=== PATIENT | female | born 1960 | race Caucasian/White ===

== ENCOUNTER 2020-12-20 11:08 | Outpatient (REF) | payer OTHER, SELFPAY ==
--- NOTE | ~2020-12-20 | XR_ITS ---
EXAMINATION: XR CERVICAL SPINE CLINICAL INFORMATION: Fibromyalgia. COMPARISON: None TECHNIQUE: Six views of the cervical spine, inclusive of flexion and extension views, were obtained. FINDINGS: There is mild straightening of cervical lordosis. The vertebral heights, alignment and disc heights are normal. There is no visible acute fracture, dislocation or lytic process seen. The neural foramina are patent bilaterally. There is no visible acute fracture, dislocation or subluxation seen. Incidental finding of bilateral C7 cervical ribs are noted The prevertebral soft tissues are normal. XR/XR cervical spine min 6V IMPRESSION: Unremarkable cervical spine exam. Incidental finding of bilateral C7 cervical ribs are noted.
== END 2020-12-20 11:09 | disposition home or self-care (01) ==
LOC: HO.XRAY 11:08
PROVIDERS: PCP Internal Medicine; Visit Provider Psychiatry & Neurology Neurology
DX: M79.7 Fibromyalgia (principal)
CPT/HCPCS: 72052

== ENCOUNTER 2021-01-14 15:00 | Outpatient (RCR) | payer OTHER, SELFPAY ==
--- NOTE | 2021-01-09 18:13 | MHC.PT.EP ---
[facility] [place] Office [place] Office [place] Office [address] Demetria Fry [address] [phone] F: [phone] F: [phone] F: [phone] F: [phone] Physical Therapy Plan of Care Date of Evaluation: 01/09/21 Date of Surgery: N/A Diagnosis: cervical rib with thoracic outlet syndrome Assessment: pt presents w/ signs and symptoms consistent with thoracic outlet syndrome secondary to B C7 cervical rib abnormality. pt presents to physical therapy with pain, decreased range of motion, decreased strength, impaired functional mobility, and impaired postural awareness. pt is a fair candidate for skilled PT due to age, potential remediation of impairments, typical disease/condition progression and prognosis, comorbidities, and motivation. pt would benefit from tailored strengthening and stretching exercise program, functional training, postural re-training, neuromuscular re-education, modalities as needed for pain, equipment safety demonstration. Frequency and Duration: The patient will be seen 2x/wk for 3 wks Short Term Goals: pt will be I w/ HEP to promote self-management of condition. pt will improve B middle trap and rhomboid strength by 1 MMT grade to improve postural strength to improve sitting posture. 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 pt will achieve full biceps strength to tolerate lifting 20# vats of food at work. Treatment Plan: Modalities to reduce pain, spasms and effusion. Manual therapy to restore motion and function. Therapeutic exercise to improve strength and flexibility. Neuromuscular re-education for posture and balance. Therapeutic activities to return to functional activities of daily living. Electronically signed by: Dilia Doherty PT, DPT Please sign and return to therapist. Thank you for your referral.
--- NOTE | 2021-02-03 15:33 | MHC.PT.DC ---
[facility] [place] Office [place] Office [place] Office [address] Demetria Fry [address] [phone] F: [phone] F: [phone] F: [phone] F: [phone] Physical Therapy Discharge Report Diagnosis: cervical rib with thoracic outlet syndrome Date of Surgery: N/A Date of Evaluation: 01/09/21 Date of Discharge: 02/03/21 Treatments to Date: 2 Cancellations to Date: 1 No Shows to Date: 0 Discharge Status: Visit Non-compliance Discharge Summary: The patient only attended one visit after her initial evaluation. She has not followed up with any further appointments in nearly three weeks. She is discharged from this physical therapy plan of care due to visit noncompliance. Electronically signed by: Dilia Doherty PT, DPT Please sign and return to therapist. Thank you for your referral.
== END 2021-02-03 15:33 | disposition other institution (70) ==
LOC: HO.PT 15:00
PROVIDERS: PCP Internal Medicine; Visit Provider Psychiatry & Neurology Neurology
DX: Q76.5 Cervical rib (principal); G54.0 Brachial plexus disorders
CPT/HCPCS: 97110; 97112; 97140; 97162

== ENCOUNTER 2023-05-19 10:23 | Outpatient (REF) | payer OTHER, SELFPAY ==
[2023-05-19 13:22] LABS: Alanine Aminotransferase 13 U/L (0-31); Albumin Level 4.3 g/dL (3.5-5.0); Alkaline Phosphatase 51 U/L (39-117); Anion Gap 11 (12-20); Aspartate Amino Transferase 14 U/L (5-31); Bilirubin Total 0.5 mg/dL (0.0-1.0); Blood Urea Nitrogen 10 mg/dL (9-16); Calcium 9.3 mg/dL (8.4-10.2); Carbon Dioxide 25 mmol/L (22-29); Chloride 108 mmol/L (96-108); Cholesterol 173 mg/dL; Estimated Glomerular Filt Rate > 60; Glucose Fasting 82 mg/dL (60-99); HDL Cholesterol 50 mg/dL; LDL Cholesterol Calculated 106 mg/dl; Potassium 3.8 mmol/L (3.3-5.1); Sodium 140 mmol/L (135-145); Total Protein 7.2 g/dL (6.5-8.0); Triglycerides 88 mg/dL
== END 2023-05-19 10:24 | disposition home or self-care (01) ==
LOC: HO.10HDL 10:23
PROVIDERS: Visit Provider Internal Medicine
DX: E78.5 Hyperlipidemia, unspecified (principal); I10 Essential (primary) hypertension
CPT/HCPCS: 36415; 80053; 80061

== ENCOUNTER 2023-06-09 12:40 | Outpatient (AMB) | payer OTHER, SELFPAY ==
[2023-06-09 12:50] VITALS: BP 136/80; BMI 31.9
--- NOTE | 2023-06-09 12:50 | MHC.PC.OV ---
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 Accompanied by: Self / Same As Patient Allergies azithromycin [AZITHROMYCIN] Allergy (Severe, Verified 06/09/23 12:59) RASH, anaphylaxis lisinopril Allergy (Unknown, Verified 06/09/23 12:59) Cough Medication List - Last Reconciled 06/09/23 by Tamra Grant MD amlodipine 5 mg PO DAILY 90 days atorvastatin 10 mg PO BEDTIME 90 days cyclobenzaprine 10 mg PO TID duloxetine (Cymbalta) 20 mg PO BID fluticasone propionate 50 mcg/actuation (Flonase Allergy Relief) 1 spray intranasal DAILY topiramate 100 mg PO BEDTIME Tobacco use date assessed: 01/13/23 Dental Screening Dental Screen Date: 06/09/23 Did you have a dental visit in the last 12 months?: Yes Did you have a dental problem in the last 6 months where you did not have access to dental care?: No Was dental information given to patient?: Patient has dentist HPI HPI Comments History of Present Illness Details This is a 63-year-old female that comes for her physical exam. Last mammogram was about 2 years ago. Last Pap smear was 2019. Last colonoscopy was over 10 years ago but she is going to hold off for now due to insurance. Last bone density was over 2 years ago. Blood pressure stable and labs were discussed. [facility] Surgical History Skin cancer Family History Father Astrocytoma Mother Astrocytoma Sister Hypothyroid Family/Other FH: mental illness Brother Suicide Social History Housing: Apartment Alcohol intake: current Alcohol intake frequency: holidays/special occasions only Alcohol type: beer and hard liquor Patient Tobacco Use Status: Current everyday Tobacco user Cigarettes Per Day: 5 e-Cigarette/Vaping Use: Never Used Second Hand Smoke Exposure: No service: No Current occupational status: employed Current occupational exposures/hazards: No Cognitive needs: No Hearing needs: No Vision needs: Yes Questionnaire Thrive Questionnaire Date Thrive assessed: 01/13/23 HOLLEY-7 AMB Questionnaire HOLLEY-7 Date HOLLEY - 7 assessed: 01/13/23 Source: Developed by Drs. Cezar Sanz, Vikki Nur, Hao Ibarra and colleagues, with an educational antonio from [employer]. Review of Systems Const All systems reviewed & are unremarkable except as noted in HPI and below Eyes Reports no additional complaints, Denies change in vision and Denies other visual disturbances Card Denies chest pain at rest, Denies chest pain with activity, Denies edema, Denies irregular heart rhythm, Denies claudication, Denies dyspnea, Denies dyspnea on exertion, Denies orthopnea, Denies paroxysmal nocturnal dyspnea and Denies slow heart rate Resp Denies cough, Denies dyspnea and Denies dyspnea on exertion GI Denies abdominal pain, Denies change in bowel habits, Denies excessive flatus, Denies nausea and Denies vomiting Denies urinary incontinence, Denies urinary hesitancy and Denies urinary urgency Musc Denies abnormal gait, Denies atrophy, Denies deformity and Denies limited range of motion Skin/Breast Denies bleeding lesions, Denies changing lesions and Denies rash Neuro Denies abnormal gait and Denies lack of coordination Physical exam (Primary Care) Vital Signs: Last Vital Signs BP 136/80 06/09/23 12:50 BMI result Body Mass Index 31.9 Tobacco/Smoking Status: Tobacco use Status Tobacco use date assessed 01/13/23 06/09/23 12:54 Patient Tobacco Use Status Current everyday Tobacco 06/09/23 12:54 e-Cigarette/Vaping Use Never Used 06/09/23 12:54 Thrive Assessment: Date of Thrive Assessment Date Thrive assessed 01/13/23 06/09/23 12:54 Const Orientation/consciousness: patient oriented x3 HENMT Head: Yes normal to inspection, Yes normocephalic and Yes atraumatic Ears: external ears normal Eyes General: appearance normal, both eyes and all related structures Eyelids: Yes eyelids normal Conjunctivae: conjunctivae normal Neck Neck: Yes normal visual inspection and Yes supple Resp Effort & Inspection: normal respiratory effort Auscultation: clear to auscultation bilaterally Cardio Jugular venous distension: no JVD Rate: regular rate Rhythm: regular rhythm Heart sounds: S1 normal heart sound present and S2 normal heart sound present GI Inspection: Yes normal to inspection Palpation (GI): Soft to palpation and nontender Auscultation: normal bowel sounds Skin General skin exam: no rashes or lesions noted Neuro General: patient oriented x3 and no focal motor deficits Extrem General: Yes full ROM Psych Appearance: grossly normal Assessment and Plan Assessment & Plan (1) Physical exam: Code(s): Z00.00 - Encounter for general adult medical examination without abnormal findings Plan: Repeat in a year Orders: Orders MM screening mammo BI Today Z12.31 - Encounter for screening mammogram for malignant neoplasm of breast XR DEXA axial skeleton Today N95.9 - Unspecified menopausal and perimenopausal disorder Medications: New Ventolin HFA 90 mcg/actuation (albuterol sulfate) 2 puffs inhalation Q6H 30 days PRN 18 grams 2RF shortness of breath or wheezing NS Coding Level of Care Code Est Pt Prev Care 40-64y(51212) Diagnoses Physical exam Z00.00 Time Spent (min) 31
== END 2023-06-09 13:13 | disposition home or self-care (01) ==
PROVIDERS: PCP Internal Medicine; Visit Provider Internal Medicine
DX: Z00.00 Encounter for general adult medical examination without abnormal findings (principal)
CPT/HCPCS: 99396

== ENCOUNTER 2023-07-14 12:29 | Outpatient (REF) | payer OTHER, SELFPAY ==
--- NOTE | ~2023-07-14 | MM_ITS ---
EXAMINATION: BONE DENSITOMETRY CLINICAL INDICATION: Unspecified menopausal and perimenopausal disorder. COMPARISON: Baseline BD dated 06/06/2013. TECHNIQUE: Using a [employer] DXA System (software version: 13.1) manufactured by [employer], dual-energy x-ray absorptiometry was performed of the lumbar spine and left hip. The images are of good technical quality. Summary results are attached. FINDINGS: LEFT FEMUR, NECK: Current: BMD 0.871 g/cm2, Z-score -0.4, T-score -1.2, osteopenia. Baseline: BMD 0.958 g/cm2. LEFT FEMUR, TOTAL: Current: BMD 1.025 g/cm2, Z-score 0.5, T-score 0.1, normal, 4.9% decrease from baseline (<5% change is not significant). Baseline: BMD 1.078 g/cm2. AP SPINE L1-L4: Current: BMD 1.345 g/cm2, Z-score 1.9, T-score 1.4, normal, 0.1% increase from baseline (<5% change is not significant). Baseline: BMD 1.344 g/cm2. IDENTIFIED RISK FACTORS: Menopause, tobacco user (current smoker). HISTORY OF FRACTURE: None listed. MEDICATIONS: Calcium, vitamin D. MM/XR DEXA axial skeleton IMPRESSION: 1. DIAGNOSIS: Osteopenia based on the lowest T-score value of -1.2 in the femoral neck applying World Health Organization criteria. 2. 10-YEAR FRACTURE RISK PREDICTION, FRAX: Major osteoporotic fracture (clinical spine, forearm, hip or shoulder) 7.4%. Hip fracture 0.9%. 3. Treatment Recommendations: NOF guidelines recommend consideration for treatment in postmenopausal women and men age 50 and older presenting with the following: -A hip or vertebral (clinical or morphometric) fracture. -T-score less than or equal to -2.5 at the femoral neck or spine after appropriate evaluation to exclude secondary causes. -Low bone mass at the hip or spine and a 10-year fracture probability by FRAX of greater than or equal to 3% for hip fracture or greater than or equal to 20% for major osteoporotic fracture based on the [place] adapted WHO algorithm. 4. Other Recommendations: All treatment decisions require clinical judgment and consideration of individual patient factors, including patient preferences, comorbidities, previous drug use, risk factors not captured in the FRAX model (e.g. frailty, falls, vitamin D deficiency, increased bone turnover, interval significant decline in bone density) and possible under or overestimation of fracture risk by FRAX. Additional medical evaluation for secondary cause of low bone mineral density may be appropriate. FUTURE SCAN RECOMMENDATION: People with diagnosed cases of osteoporosis or at high risk for fracture should have regular bone mineral density tests. For patients eligible for Medicare, routine testing is allowed once every 2 years. The testing frequency can be increased to one year for patients who have rapidly progressing disease, those who are receiving or discontinuing medical therapy to restore bone mass, or have additional risk factors.
== END 2023-07-14 12:30 | disposition home or self-care (01) ==
LOC: HO.MAMMO 12:29
PROVIDERS: PCP Internal Medicine; Visit Provider Internal Medicine
DX: Z12.31 Encounter for screening mammogram for malignant neoplasm of breast (principal); Z13.820 Encounter for screening for osteoporosis; Z78.0 Asymptomatic menopausal state
CPT/HCPCS: 77063; 77067; 77080

== ENCOUNTER → 2023-07-14 13:00 | Outpatient (BNV) | payer OTHER, SELFPAY | PROVIDERS: PCP Internal Medicine; Visit Provider Radiology Diagnostic Radiology | DX: Z12.31 Encounter for screening mammogram for malignant neoplasm of breast (principal) | CPT/HCPCS: 77063; 77067 ==

== ENCOUNTER 2024-05-09 10:51 | Outpatient (AMB) | payer OTHER, SELFPAY ==
[2024-05-09 11:19] VITALS: BP 144/90; PULSE 74; TEMP 36.8; O2SAT 98; BMI 32.4
--- NOTE | 2024-05-09 11:19 | AM.OFFWIN_ITS ---
Intake Vital Signs 05/09/24 11:19 Height 5 ft 7 in Weight 207 lb BMI 32.4 BP 144/90 H Blood Pressure Location Lt brachial Position Sitting Pulse 74 Pulse Source Pulse Oximeter Temp 98.3 F Temp Source Oral Pulse Oximetry (%) 98 Oxygen Delivery Method Room Air Intake Visit Reasons: EP Flu/Sinus symptoms Intake Note: pt c/o sinus pressure and pain, sore throat, intermittent fever, cough. 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 Reporting symptoms of sinus congestion, sore throat and difficulty swallowing. Low-grade fever. No family member is sick. No recent travel. Patient reports symptoms of malaise and fatigue. [facility] Medical History (Updated 05/09/24 @ 11:58 by Kirit Bowser MD) Upper respiratory tract infection Surgical History Skin cancer Family History Father Astrocytoma Mother Astrocytoma Sister Hypothyroid Family/Other FH: mental illness Brother Suicide Social History Housing: Apartment Alcohol intake: current Alcohol intake frequency: holidays/special occasions only Alcohol type: beer and hard liquor Patient Tobacco Use Status: Current everyday Tobacco user Cigarettes Per Day: 5 e-Cigarette/Vaping Use: Never Used Second Hand Smoke Exposure: No service: No Current occupational status: employed Current occupational exposures/hazards: No Cognitive needs: No Hearing needs: No Vision needs: Yes Physical Exam Vital Signs: Last Vital Signs Temp 98.3 F 05/09/24 11:19 Pulse 74 05/09/24 11:19 BP 144/90 H 05/09/24 11:19 Pulse Ox 98 05/09/24 11:19 Oxygen Delivery Method Room Air 05/09/24 11:19 BMI result Body Mass Index 32.4 Const General: cooperative and healthy appearing Nutritional Appearance: well nourished Orientation/consciousness: patient oriented x3 Limitations: no limitations HEENT Head: Yes normal to inspection Eyes General: appearance normal, both eyes and all related structures Neck Neck: Yes normal visual inspection Chest Chest palpation & inspection: normal palpation of entire chest wall Resp Effort & Inspection: normal respiratory effort Neuro General: patient oriented x3 Assessment & Plan Assessment & Plan (1) Upper respiratory tract infection: Code(s): J06.9 - Acute upper respiratory infection, unspecified Plan: Antibiotics ordered. Increase fluid intake. Tylenol for aches and pains. If symptoms worsen, follow-up here for a recheck. Coding Level of Care Code Est Pt Level 3 (92846) Diagnoses Upper respiratory tract infection J06.9
== END 2024-05-09 13:22 | disposition home or self-care (01) ==
PROVIDERS: PCP Internal Medicine; Visit Provider Internal Medicine
DX: J06.9 Acute upper respiratory infection, unspecified (principal)
CPT/HCPCS: 99213

== ENCOUNTER 2024-06-13 12:50 | Outpatient (AMB) | payer OTHER, SELFPAY ==
--- NOTE | 2024-06-13 12:52 | A.OFFPC_ITS ---
Vital Signs 06/13/24 12:53 Height 5 ft 7 in Weight 204 lb BMI 31.9 BP 136/80 Blood Pressure Location Lt brachial Position Sitting Intake Visit Reasons: pe Intake Note: Patient here for a physical exam [employer] Required: No Accompanied by: Self / Same As Patient Allergies azithromycin [AZITHROMYCIN] Allergy (Severe, Verified 06/13/24 13:09) RASH, anaphylaxis lisinopril Allergy (Unknown, Verified 06/13/24 13:09) Cough Medication List - Last Reconciled 06/13/24 by Tamra Grant MD albuterol sulfate 90 mcg/actuation (Ventolin HFA) 2 puffs inhalation Q6H PRN 30 days amlodipine 5 mg PO DAILY 90 days atorvastatin 10 mg PO BEDTIME 90 days duloxetine 60 mg PO DAILY 90 days topiramate 100 mg PO BEDTIME Tobacco use date assessed: 06/13/24 Dental Screening Dental Screen Date: 06/13/24 Did you have a dental visit in the last 12 months?: Yes Did you have a dental problem in the last 6 months where you did not have access to dental care?: No Was dental information given to patient?: Patient has dentist HPI HPI Comments History of Present Illness Details This is a 64-year-old female that comes for her physical exam. She is obese with a BMI of 32 and has tried diet and exercise with no significant improvement. I will start her on Wegovy. Mammogram done 2022 was normal. DEXA scan done 2022 and next DEXA should be 2024. We will hold on colonoscopy for now. Was advised to quit smoking and wants to start the patch. Complains of neck pain relieved by Flexeril and would like a refill. Last Pap smear as per patient was 2021 and was normal. [facility] Medical History (Updated 06/13/24 @ 13:31 by Tamra Grant MD) Upper respiratory tract infection Surgical History Skin cancer Family History Father Astrocytoma Mother Astrocytoma Sister Hypothyroid Family/Other FH: mental illness Brother Suicide Social History Housing: Apartment Alcohol intake: current Alcohol intake frequency: holidays/special occasions only Alcohol type: beer and hard liquor Patient Tobacco Use Status: Current everyday Tobacco user Tobacco use type: Cigarette Cigarettes Per Day: 5 e-Cigarette/Vaping Use: Never Used Second Hand Smoke Exposure: No service: No Current occupational status: employed Current occupational exposures/hazards: No Cognitive needs: No Hearing needs: No Vision needs: Yes Questionnaire PHQ-9 Over the last 2 weeks, how often have you been bothered by any of the following problems? 1. Little interest or pleasure in doing things: not at all 2. Feeling down, depressed, or hopeless: not at all 3. Trouble falling or staying asleep, or sleeping too much: not at all 4. Feeling tired or having little energy: several days 5. Poor appetite or overeating: not at all 6. Feeling bad about yourself - or that you are a failure or have let yourself or your family down: not at all 7. Trouble concentrating on things, such as reading the newspaper or watching television: not at all 8. Moving or speaking so slowly that other people could have noticed. Or the opposite - being so fidgety or restless that you have been moving around a lot more than usual: not at all 9. Thoughts that you would be better off or of hurting yourself in some way: not at all Total score: 1 Depression Screening Interpretation: Negative Depression Screening Done: Yes 41504 - PHQ-9 Billing: Yes Source: Developed by Drs. Cezar Sanz, Vikki Nur, Hao Ibarra and colleagues, with an educational antonio from [employer]. Thrive Questionnaire Date Thrive assessed: 06/13/24 I am a: Patient What is your living situation today?: I have a steady place to live Within the past 12 months, did the food you bought not last and you didn't have the money to get more?: Never true Within the past 12 months, did you worry whether your food would run out before you got money to buy more?: Never true Do you have trouble paying for medicines?: I choose not to answer this question Do you have trouble getting transportation to medical appointments?: No Do you have trouble paying your heating and electricity bill?: No Do you have trouble taking care of your child, family member or friend?: No Do you have trouble with day-to-day activities such as bathing, preparing meals, shopping, managing finances, etc.?: No Are you currently unemployed and looking for a job?: No Are you interested in more education?: No Please select the resources that you would like help with: None Currently or been in a relationship where the following occur: I choose not to answer THRIVE Score: 0 AUDIT C Alcohol Use Questionnaire (AUDIT-C) 1. How often do you have a drink containing alcohol?: Monthly or less 2. How many drinks containing alcohol do you have on a typical day when you are drinking?: 1 or 2 3. How often do you have six or more drinks on one occasion?: Never Total Score: 1 Score Reviewed/Action Taken: No HOLLEY-7 AMB Questionnaire HOLLEY-7 Date HOLLEY - 7 assessed: 06/13/24 Feeling nervous, anxious, or on edge: 0 = Not at all Not being able to stop or control worryin = Not at all Worrying too much about different things: 0 = Not at all Trouble relaxin = Not at all Being so restless that it is hard to sit still: 0 = Not at all Becoming easily annoyed or irritable: 0 = Not at all Feeling afraid as if something awful might happen: 0 = Not at all Total HOLLEY-7 score (0-4 normal; 5-9 mild; 10-14 moderate; 15-21 severe): 0 Source: Developed by Drs. Cezar Sanz, Vikki Nur, Hao Ibarra and colleagues, with an educational antonio from [employer]. HOLLEY-7 Assessment Billing HOLLEY-7 Assessment Tool: HOLLEY-7 Assessment 31998 Review of Systems Const All systems reviewed & are unremarkable except as noted in HPI and below ENT Reports neck pain Card Denies chest pain at rest, Denies chest pain with activity, Denies edema, Denies irregular heart rhythm, Denies claudication, Denies dyspnea, Denies dyspnea on exertion, Denies orthopnea, Denies paroxysmal nocturnal dyspnea and Denies slow heart rate Resp Denies cough, Denies dyspnea and Denies dyspnea on exertion GI Denies abdominal pain, Denies change in bowel habits, Denies excessive flatus, Denies nausea and Denies vomiting Denies urinary incontinence, Denies urinary hesitancy and Denies urinary urgency Musc Denies abnormal gait, Denies atrophy, Denies deformity, Reports arthralgias, Den ies limited range of motion and Reports neck pain Skin/Breast Denies bleeding lesions, Denies changing lesions and Denies rash Neuro Denies abnormal gait and Denies lack of coordination Physical exam (Primary Care) Vital Signs: Last Vital Signs BP 136/80 06/13/24 12:53 BMI result Body Mass Index 31.9 BMI Assessment/Plan discussion: High BMI High, discussed plan: lifestyle, weight reduction, dietary, physical activity and alcohol moderation Tobacco/Smoking Status: Tobacco use Status Tobacco use date assessed 06/13/24 06/13/24 13:01 Patient Tobacco Use Status Current everyday Tobacco 06/13/24 13:01 Tobacco use type Cigarette 06/13/24 13:01 e-Cigarette/Vaping Use Never Used 06/13/24 13:01 Are you ready to quit: Yes Tobacco cessation counseling provided: Yes Items discussed: Nicotine replacement Relapse Prevention: discussed the importance of a supportive environment, discussed extending NRT, discussed negative mood or depression after quitting, weight gain after smoking is common and discussed dietary, exercise and/or lifestyle changes Number of minutes spent counselin CPT code: 71621 - 4-10 Minutes PHQ-9: PHQ-9 Score PHQ-9: Total score 1 06/13/24 13:01 Depression Screening Interpretation: Negative Thrive Assessment: Date of Thrive Assessment Date Thrive assessed 06/13/24 06/13/24 13:01 Currently or been in a relationship where the following occur: I choose not to answer [facility] Head: Yes normal to inspection, Yes normocephalic and Yes atraumatic Ears: external ears normal Eyes General: appearance normal, both eyes and all related structures Eyelids: Yes eyelids normal Conjunctivae: conjunctivae normal Neck Neck: Yes normal visual inspection and Yes supple Resp Effort & Inspection: normal respiratory effort Auscultation: clear to auscultation bilaterally Cardio Jugular venous distension: no JVD Rate: regular rate Rhythm: regular rhythm Heart sounds: S1 normal heart sound present and S2 normal heart sound present GI Inspection: Yes normal to inspection Palpation (GI): Soft to palpation and nontender Auscultation: normal bowel sounds Skin General skin exam: no rashes or lesions noted Neuro General: no focal motor deficits Extrem General: Yes full ROM Psych Appearance: grossly normal Assessment and Plan Assessment & Plan (1) Physical exam: Code(s): Z00.00 - Encounter for general adult medical examination without abnormal findings Plan: Repeat in a year. (2) Class 1 obesity with body mass index (BMI) of 32.0 to 32.9 in adult: Code(s): E66.9 - Obesity, unspecified; Z68.32 - Body mass index [BMI] 32.0-32.9, adult Qualifiers: Obesity type: due to excess calories Serious obesity comorbidity presence: with serious comorbidity Qualified Code(s): E66.09 - Other obesity due to excess calories; Z68.32 - Body mass index [BMI] 32.0-32.9, adult Plan: Start Wegovy. BMI goal is less than 30. (3) Neck pain: Code(s): M54.2 - Cervicalgia Plan: Start Flexeril as needed. Orders: Orders Comprehensive [place]. Panel Fast Today Z00.00 - Encounter for general adult medical examination without abnormal findings Lipid Panel Today E78.5 - Hyperlipidemia, unspecified MM screening mammo BI Today Z12.31 - Encounter for screening mammogram for malignant neoplasm of breast Medications: New cyclobenzaprine 5 mg PO TID 30 days PRN 90 tabs 0RF muscle spasm M54.2 - Cervicalgia nicotine 1 patch transdermal DAILY 28 days 28 ea 0RF semaglutide (weight loss) (Wegovy) administer weeks 1 through 4 of therapy 0.25 mg (0.5 mL) subcut QWEEK 4 weeks 2 mL 0RF E66.9 - Obesity, unspecified, E78.00 - Pure hypercholesterolemia, unspecified, I10 - Essential (primary) hypertension, Z68.32 - Body mass index [BMI] 32.0-32.9, adult Refilled albuterol sulfate 90 mcg/actuation (Ventolin HFA) 2 puffs inhalation Q6H 30 days PRN 8.5 grams 2RF shortness of breath or wheezing Coding Level of Care Code Est Pt Level 3 (01025) Est Pt Prev Care 40-64y(71656) Diagnoses Physical exam Z00.00 Class 1 obesity due to excess calories with serious comorbidity and body mass index (BMI) of 32.0 to 32.9 in adult E66.09; Z68.32 Obesity type: due to excess calories Serious obesity comorbidity presence: with serious comorbidity Neck pain M54.2 Additional Codes HOLLEY-7 Assessment Billing - HOLLEY-7 Assessment Tool: HOLLEY-7 Assessment 01540 ([id number]) Vital Signs *Quality* - CPT code: 21743 - 4-10 Minutes ([id number]) Time Spent (min) 35
[2024-06-13 12:53] VITALS: BP 136/80; BMI 31.9
== END 2024-06-13 13:26 | disposition home or self-care (01) ==
PROVIDERS: PCP Internal Medicine; Visit Provider Internal Medicine
DX: Z00.00 Encounter for general adult medical examination without abnormal findings (principal); E66.09 Other obesity due to excess calories; Z68.32 Body mass index [BMI] 32.0-32.9, adult; F17.210 Nicotine dependence, cigarettes, uncomplicated; M54.2 Cervicalgia
CPT/HCPCS: 99213; 99396; 99406

== ENCOUNTER 2024-07-19 13:10 | Outpatient (REF) | payer OTHER, SELFPAY ==
--- NOTE | ~2024-07-19 | MM_ITS ---
EXAMINATION: MM SCREENING DIGITAL BREAST TOMOSYNTHESIS, BILATERAL CLINICAL INFORMATION: Screening. Asymptomatic. COMPARISON: Mammography: Comparison is made with available priors TECHNIQUE: Digital breast mammography with tomosynthesis is performed in both the craniocaudal and mediolateral oblique views along with computer-aided detection (CAD). FINDINGS: There are scattered areas of fibroglandular density (ACR BI-RADS breast composition Category b). There are no significant masses, abnormal calcifications, or other abnormalities. MM/MM tomosynthesis screening BI IMPRESSION: No mammographic evidence of malignancy. ASSESSMENT: BI-RADS BI-RADS 1 - Negative RECOMMENDATION: Routine annual mammography screening. 1 year F/U This examination should not preclude the clinical evaluation of a suspicious palpable abnormality. This patient's information was entered into a reminder system with a target due date for their next mammogram. Electronically signed by: Bijal Keenan DO 07/31/2024 05:34 PM EDT
== END 2024-07-19 13:11 | disposition home or self-care (01) ==
LOC: HO.MAMMO 13:10
PROVIDERS: PCP Internal Medicine; Visit Provider Internal Medicine
DX: Z12.31 Encounter for screening mammogram for malignant neoplasm of breast (principal)
CPT/HCPCS: 77063; 77067

== ENCOUNTER → 2024-07-19 13:30 | Outpatient (BNV) | payer OTHER, SELFPAY | PROVIDERS: PCP Internal Medicine; Visit Provider Internal Medicine | DX: Z12.31 Encounter for screening mammogram for malignant neoplasm of breast (principal) | CPT/HCPCS: 77063; 77067 ==

== ENCOUNTER 2024-09-05 11:04 | Outpatient (REF) | payer OTHER, SELFPAY ==
[2024-09-05 15:21] LABS: Influenza A PCR NEGATIVE (Negative); Influenza B PCR NEGATIVE (Negative); Resp Syncy Virus RNA Qual PCR NEGATIVE (Negative); SARS COV2 PCR INHOUSE NEGATIVE (Negative)
== END 2024-09-05 11:05 | disposition home or self-care (01) ==
LOC: HO.LAB 11:04
PROVIDERS: Physician Assistant; PCP Internal Medicine
DX: J06.9 Acute upper respiratory infection, unspecified (principal)
CPT/HCPCS: 0241U

== ENCOUNTER 2024-09-05 11:04 | Outpatient (AMB) | payer OTHER, SELFPAY ==
[2024-09-05 11:27] VITALS: BP 126/70; PULSE 76; TEMP 37.1; O2SAT 98
--- NOTE | 2024-09-05 11:27 | MHC.OFFWIV ---
Intake Vital Signs 09/05/24 11:27 Weight 206 lb BP 126/70 Blood Pressure Location Rt brachial Position Sitting Pulse 76 Pulse Source Pulse Oximeter Temp 98.7 F Temp Source Oral Pulse Oximetry (%) 98 Oxygen Delivery Method Room Air Intake Visit Reasons: EP persistent cough, irritated throat Intake Note: Patient here for cough and laryngitis that started last wednesday. Patient Tobacco Use Status: Current everyday Tobacco user Allergies azithromycin [AZITHROMYCIN] Allergy (Severe, Verified 09/05/24 11:28) RASH, anaphylaxis lisinopril Allergy (Unknown, Verified 09/05/24 11:28) Cough Do you need a note to return to daycare/school/sports/work: Yes HPI HPI Comments History of Present Illness Details History of Present Illness The patient is a 64-year-old female presenting with respiratory symptoms including sore throat, loss of voice, persistent cough, and difficulty breathing. The symptoms began last Wednesday with a sore throat followed by loss of voice and a relentless cough. The cough is particularly problematic during physical activities like walking and climbing stairs, as well as during sleep, necessitating upright positioning. The patient also reported fevers up to 100?F, which occasionally recurs at 99.9?F. They have a history of asthma, managed with an albuterol inhaler, which has seen increased use over the past few days due to thick phlegm production initially white, now greenish-yellow, and sinus congestion, though phlegm production has since reduced. The patient works at a [employer] facility where compliance with protective measures like masks is challenging, increasing potential exposure risks. They also experience heightened asthma symptoms during early spring and fall and usually manage allergies with Claritin. The patient is allergic to azithromycin. Current medication includes corticosteroid lozenges and Tylenol. Physical Exam General: Cooperative, healthy appearing, comfortable and no acute distress Orientation/consciousness: Patient oriented x3 Limitations: No limitations Head: Normal to inspection Ears: Hearing grossly normal bilaterally, external ears normal and TM's normal bilaterally, but left ear erythema with wax obstructing view Nose: Normal external nose present, Normal nares present and No nasal discharge present Face and sinus: Normal facial exam and Yes sinuses nontender Mouth: Normal oral and palatal mucosa present and moist mucous membranes Throat: Yes tonsils normal, Yes uvula midline. Posterior oropharynx erythema Eyes: Appearance normal, both eyes and all related structures Neck: Normal visual inspection Respirtory: Clear to auscultation bilaterally. Normal respiratory effort, able to speak in complete sentences, Actively coughing, no respiratory distress, not tachypneic, no tripod positioning and no use of accessory muscles Cardiovascular: Regular rate and rhythm. Normal S1 and S2 Skin: No rashes or lesions noted Neuro: Patient oriented x3 Extremities: Normal to inspection and Yes no clubbing, cyanosis or edema PFSH Medical History Upper respiratory tract infection Surgical History Skin cancer Family History Father Astrocytoma Mother Astrocytoma Sister Hypothyroid Family/Other FH: mental illness Brother Suicide Social History Housing: Apartment Alcohol intake: current Alcohol intake frequency: holidays/special occasions only Alcohol type: beer and hard liquor Patient Tobacco Use Status: Current everyday Tobacco user Tobacco use type: Cigarette Cigarettes Per Day: 5 e-Cigarette/Vaping Use: Never Used Second Hand Smoke Exposure: No service: No Current occupational status: employed Current occupational exposures/hazards: No Cognitive needs: No Hearing needs: No Vision needs: Yes Review of Systems Const All systems reviewed & are unremarkable except as noted in HPI and below Physical Exam Vital Signs: Last Vital Signs Temp 98.7 F 09/05/24 11:27 Pulse 76 09/05/24 11:27 BP 126/70 09/05/24 11:27 Pulse Ox 98 09/05/24 11:27 Oxygen Delivery Method Room Air 09/05/24 11:27 Assessment & Plan Assessment & Plan (1) Upper respiratory tract infection: Code(s): J06.9 - Acute upper respiratory infection, unspecified Qualifiers: URI type: unspecified URI Qualified Code(s): J06.9 - Acute upper respiratory infection, unspecified Plan: Plan - Atypical Pneumonia: Initiate doxycycline for five days as the primary treatment due to azithromycin allergy. Arrange for respiratory viral testing including flu, COVID, and RSV to rule out other viral pathogens. Prescribe Tessalon Perles for symptomatic relief to be taken as needed, especially at night to improve sleep quality. Advise continuation of current corticosteroid lozenges. - Asthma: Prescribe an additional ventilator inhaler because of increased usage and ensure adequate supply. - Rest: Recommend staying off work for an additional day for rest and adequate hydration. A work note can be provided to cover these days. Orders: Orders SARS-CoV2/FLU/RSV Today J06.9 - Acute upper respiratory infection, unspecified Medications: New benzonatate 200 mg PO TID PRN 14 caps 0RF cough albuterol sulfate 90 mcg/actuation (Ventolin HFA) 2 puffs inhalation Q4-6H PRN 8.5 grams 0RF shortness of breath or wheezing doxycycline hyclate 100 mg PO BID 10 tabs 0RF Coding Level of Care Code Est Pt Level 4 (74413) Diagnoses Upper respiratory tract infection, unspecified type J06.9 URI type: unspecified URI
== END 2024-09-05 11:49 | disposition home or self-care (01) ==
PROVIDERS: PCP Internal Medicine; Visit Provider Physician Assistant
DX: J06.9 Acute upper respiratory infection, unspecified (principal)

== ENCOUNTER → 2024-10-31 10:31 | Outpatient (BNVA) | payer OTHER, SELFPAY | PROVIDERS: PCP Internal Medicine; Visit Provider Registered Nurse | DX: S30.0XXA Contusion of lower back and pelvis, initial encounter (principal); S40.012A Contusion of left shoulder, initial encounter; S76.112A Strain of left quadriceps muscle, fascia and tendon, initial encounter; W00.0XXA Fall on same level due to ice and snow, initial encounter | CPT/HCPCS: 99203 ==

== ENCOUNTER → 2024-11-07 10:52 | Outpatient (BNVA) | payer OTHER, SELFPAY | PROVIDERS: PCP Internal Medicine; Visit Provider Registered Nurse | DX: S30.0XXD Contusion of lower back and pelvis, subsequent encounter (principal); S40.012D Contusion of left shoulder, subsequent encounter; S76.112D Strain of left quadriceps muscle, fascia and tendon, subsequent encounter; W00.0XXD Fall on same level due to ice and snow, subsequent encounter | CPT/HCPCS: 99213 ==

== ENCOUNTER 2024-11-29 13:16 | Outpatient (AMB) | payer OTHER, SELFPAY ==
--- NOTE | 2024-11-29 13:23 | A.OFFPC_ITS ---
Vital Signs 11/29/24 13:25 Height 5 ft 7 in Weight 206 lb 6 oz BMI 32.3 BP 110/72 Blood Pressure Location Lt brachial Position Sitting Pulse 81 Pulse Source Pulse Oximeter Temp 97.1 F Temp Source Temporal Artery Scan Pulse Oximetry (%) 99 Oxygen Delivery Method Room Air Intake Visit Reasons: BP Intake Note: Patient is here to follow up on BP. Policy Change Clerk Required: No Derrick Worker: Not Required per policy Accompanied by: Self / Same As Patient Allergies azithromycin [AZITHROMYCIN] Allergy (Severe, Verified 11/29/24 13:48) RASH, anaphylaxis lisinopril Allergy (Unknown, Verified 11/29/24 13:48) Cough Medication List - Last Reconciled 11/29/24 by Tamra Grant MD albuterol sulfate 90 mcg/actuation (Ventolin HFA) 2 puffs inhalation Q4-6H PRN amlodipine 5 mg PO DAILY 90 days atorvastatin 10 mg PO BEDTIME 90 days benzonatate 200 mg PO TID PRN cyclobenzaprine 5 mg PO TID PRN 30 days duloxetine 60 mg PO DAILY 90 days nicotine 1 patch transdermal DAILY 28 days topiramate 100 mg (2 x 50 mg) PO BEDTIME 90 days Tobacco use date assessed: 11/29/24 Dental Screening Dental Screen Date: 11/29/24 Did you have a dental visit in the last 12 months?: Yes Did you have a dental problem in the last 6 months where you did not have access to dental care?: No Was dental information given to patient?: Patient has dentist HPI HPI Comments History of Present Illness Details The patient is a 64-year-old female presenting for a follow-up visit for assessment of ongoing health issues and medication management. She has a history of hypertension, satisfactorily controlled with Amlodipine. The patient had a recent COVID-19 infection, with a subsequent onset of cough during recovery. She had an allergic reaction to Azithromycin resulting in a rash and experienced a cough due to Lisinopril, which was discontinued. The patient's current medication regimen includes Atorvastatin for hyperl ipidemia, Cyclobenzaprine for episodic muscle spasms, Duloxetine for fibromyalgia-related pain and depression, and Topiramate for migraine prophylaxis. Recently, she sustained contusions from a fall on ice, resulting in bruises primarily on her back and wrists but no fractures as confirmed by workman's compensation consultations. 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 Despite past efforts with nicotine patches, she continues to smoke three cigarettes per day and occasionally consumes alcohol during special events. [facility] Medical History (Updated 11/29/24 @ 14:02 by Tamra Grant MD) Upper respiratory tract infection Surgical History Skin cancer Family History Father Astrocytoma Mother Astrocytoma Sister Hypothyroid Family/Other FH: mental illness Brother Suicide Other Mental health disorder Social History Housing: Apartment Alcohol intake: current Alcohol intake frequency: holidays/special occasions only Alcohol type: beer and hard liquor Patient Tobacco Use Status: Current everyday Tobacco user Tobacco use type: Cigarette Cigarette Packs Per Day: 0.25 Cigarettes Per Day: 3 e-Cigarette/Vaping Use: Never Used Second Hand Smoke Exposure: Yes service: No Current occupational status: employed Current occupational exposures/hazards: No Cognitive needs: No Hearing needs: No Vision needs: Yes (Glasses) Questionnaire PHQ-9 Over the last 2 weeks, how often have you been bothered by any of the following problems? 1. Little interest or pleasure in doing things: not at all 2. Feeling down, depressed, or hopeless: not at all 3. Trouble falling or staying asleep, or sleeping too much: not at all 4. Feeling tired or having little energy: not at all 5. Poor appetite or overeating: not at all 6. Feeling bad about yourself - or that you are a failure or have let yourself or your family down: not at all 7. Trouble concentrating on things, such as reading the newspaper or watching television: not at all 8. Moving or speaking so slowly that other people could have noticed. Or the opposite - being so fidgety or restless that you have been moving around a lot more than usual: not at all 9. Thoughts that you would be better off or of hurting yourself in some way: not at all Total score: 0 Depression Screening Interpretation: Negative Depression Screening Done: Yes 60866 - PHQ-9 Billing: Yes Source: Developed by Drs. Cezar Sanz, Vikki Nur, Hao Ibarra and colleagues, with an educational antonio from [employer]. Thrive Questionnaire Date Thrive assessed: 11/29/24 I am a: Patient What is your living situation today?: I have a steady place to live Within the past 12 months, did the food you bought not last and you didn't have the money to get more?: Never true Within the past 12 months, did you worry whether your food would run out before you got money to buy more?: Never true Do you have trouble paying for medicines?: I choose not to answer this question Do you have trouble getting transportation to medical appointments?: No Do you have trouble paying your heating and electricity bill?: No Do you have trouble taking care of your child, family member or friend?: No Do you have trouble with day-to-day activities such as bathing, preparing meals, shopping, managing finances, etc.?: No Are you currently unemployed and looking for a job?: No Are you interested in more education?: No Please select the resources that you would like help with: None Currently or been in a relationship where the following occur: I choose not to answer THRIVE Score: 0 AUDIT C Alcohol Use Questionnaire (AUDIT-C) 1. How often do you have a drink containing alcohol?: Monthly or less 2. How many drinks containing alcohol do you have on a typical day when you are drinking?: 1 or 2 3. How often do you have six or more drinks on one occasion?: Never Total Score: 1 Score Reviewed/Action Taken: No HOLLEY-7 AMB Questionnaire HOLLEY-7 Date HOLLEY - 7 assessed: 11/29/24 Feeling nervous, anxious, or on edge: 0 = Not at all Not being able to stop or control worryin = Not at all Worrying too much about different things: 0 = Not at all Trouble relaxin = Not at all Being so restless that it is hard to sit still: 0 = Not at all Becoming easily annoyed or irritable: 0 = Not at all Feeling afraid as if something awful might happen: 0 = Not at all Total HOLLEY-7 score (0-4 normal; 5-9 mild; 10-14 moderate; 15-21 severe): 0 Source: Developed by Drs. Cezar Sanz, Vikki Nur, Hao Ibarra and colleagues, with an educational antonio from [employer]. HOLLEY-7 Assessment Billing HOLLEY-7 Assessment Tool: HOLLEY-7 Assessment 38799 Review of Systems Const All systems reviewed & are unremarkable except as noted in HPI and below Card Denies chest pain at rest, Denies chest pain with activity, Denies edema, Denies irregular heart rhythm, Denies claudication, Denies dyspnea, Denies dyspnea on exertion, Denies orthopnea, Denies paroxysmal nocturnal dyspnea and Denies slow heart rate Resp Denies cough, Denies dyspnea and Denies dyspnea on exertion GI Denies abdominal pain, Denies change in bowel habits, Denies excessive flatus, Denies nausea and Denies vomiting Denies urinary incontinence, Denies urinary hesitancy and Denies urinary urgency Neuro Denies lack of coordination Physical exam (Primary Care) Vital Signs: Last Vital Signs Temp 97.1 F 11/29/24 13:25 Pulse 81 11/29/24 13:25 BP 110/72 11/29/24 13:25 Pulse Ox 99 11/29/24 13:25 Oxygen Delivery Method Room Air 11/29/24 13:25 BMI result Body Mass Index 32.3 Tobacco/Smoking Status: Tobacco use Status Tobacco use date assessed 11/29/24 11/29/24 13:30 Patient Tobacco Use Status Current everyday Tobacco 11/29/24 13:30 Tobacco use type Cigarette 11/29/24 13:30 e-Cigarette/Vaping Use Never Used 11/29/24 13:30 PHQ-9: PHQ-9 Score PHQ-9: Total score 0 11/29/24 13:30 Depression Screening Interpretation: Negative Thrive Assessment: Date of Thrive Assessment Date Thrive assessed 11/29/24 11/29/24 13:30 Currently or been in a relationship where the following occur: I choose not to answer Resp Effort & Inspection: normal respiratory effort Auscultation: clear to auscultation bilaterally Cardio Jugular venous distension: no JVD Rate: regular rate Rhythm: regular rhythm Heart sounds: S1 normal heart sound present and S2 normal heart sound present Extrem General: Yes full ROM Coding Level of Care Code Est Pt Level 4 (68930) Complex EM visit Add On G2211 Diagnoses Essential hypertension I10 Pure hypercholesterolemia E78.00 Muscle spasm M62.838 Migraines G43.909 Additional Codes PHQ-9 - 89374 - PHQ-9 Billing: Yes ([id number]) HOLLEY-7 Assessment Billing - HOLLEY-7 Assessment Tool: HOLLEY-7 Assessment 55323 ([id number]) Time Spent (min) 22 Assessment & Plan Assessment & Plan (1) Essential hypertension: Code(s): I10 - Essential (primary) hypertension Category: Medical (2) Pure hypercholesterolemia: Code(s): E78.00 - Pure hypercholesterolemia, unspecified Category: Medical (3) Muscle spasm: Code(s): M62.838 - Other muscle spasm Category: Medical (4) Migraines: Code(s): G43.909 - Migraine, unspecified, not intractable, without status migrainosus Category: Medical Plan The visit focused on managing the patient's chronic conditions, particularly hypertension, fibromyalgia, and migraine prophylaxis. The patient reported effective blood pressure control with ongoing Amlodipine treatment. After a recent COVID-19 infection, respiratory symptoms should be monitored even after recovery. Current management plans for fibromyalgia and migraines with Duloxetine and Topiramate appear effective with no impending changes. The patient has a history of an allergic rash to Azithromycin and cough with Lisinopril, both to be avoided. After a recent fall with contusions, care is advised without additional imaging unless symptoms persist. Support continues for the patient's reduced smoking efforts using nicotine patches. Upcoming blood work is planned for the annual physical in June, focusing on comprehensive health assessment. Patient was informed and verbally consented to the use of an ambient scribe for clinic note documentation during this visit. During our discussion, I explained to the patient the importance of monitoring her blood pressure, which is under control with her current medication, Amlodipine. We discussed her recent COVID-19 experience and noted the atypical post-recovery cough she's experiencing. I emphasized the importance of staying vigilant for any further respiratory symptoms. The patient is currently avoiding Azithromycin due to a prior rash and Lisinopril due to a past cough. In terms of pain management for fibromyalgia and migraines, I confirmed the continued use of Duloxetine and Topiramate, respectively. Regarding her recent fall, although she did not require emergency treatment, I advised caution and reinforced safety measures at work, given her exposure to potential workplace hazards. We discussed her smoking habits and the reduction she's achieved with nicotine patches as part of her efforts to quit. The patient was informed about an upcoming scheduled blood work in June for her annual physical examination, where we will focus on a detailed analysis of cholesterol, sugar levels, kidney, and liver function, as well as discuss further management of her conditions, any new developments, and ongoing preventative health strategies. Orders: Orders Lipid Panel 7 Months E78.5 - Hyperlipidemia, unspecified Comprehensive Grant. Panel Fast 7 Months I10 - Essential (primary) hypertension Vitamin D 25-OH Total 7 Months E55.9 - Vitamin D deficiency, unspecified XR DEXA axial skeleton 7 Months Z78.0 - Asymptomatic menopausal state Medications: Refilled benzonatate 200 mg PO TID PRN 14 caps 0RF cough Patient Instructions: - Continue taking Amlodipine, Atorvastatin, Duloxetine, and Topiramate as prescribed. - Monitor any continued cough or respiratory symptoms, especially [id number] recovery. - Avoid using Azithromycin and Lisinopril. - Use Cyclobenzaprine as needed for muscle spasms. - Continue with efforts to reduce and eventually cease smoking, utilizing nicotine patches as necessary. - Follow workplace safety protocols to reduce risk of falls and exposure to infections. - Blood work is scheduled for June; ensure attendance for comprehensive assessment. - Return for immediate care if experiencing severe respiratory issues or new symptoms related to recent fall injuries.
[2024-11-29 13:25] VITALS: BP 110/72; PULSE 81; TEMP 36.2; O2SAT 99; BMI 32.3
== END 2024-11-29 13:59 | disposition home or self-care (01) ==
PROVIDERS: PCP Internal Medicine; Visit Provider Internal Medicine
DX: I10 Essential (primary) hypertension (principal); E78.00 Pure hypercholesterolemia, unspecified; M62.838 Other muscle spasm; G43.909 Migraine, unspecified, not intractable, without status migrainosus

== ENCOUNTER → 2024-11-29 13:16 | Outpatient (BNVA) | payer OTHER, SELFPAY | PROVIDERS: PCP Internal Medicine; Visit Provider Internal Medicine | DX: I10 Essential (primary) hypertension (principal); E78.00 Pure hypercholesterolemia, unspecified; M62.838 Other muscle spasm; G43.909 Migraine, unspecified, not intractable, without status migrainosus; Z79.899 Other long term (current) drug therapy | CPT/HCPCS: 96127 ==

== ENCOUNTER 2025-08-15 10:25 | Outpatient (REF) | payer OTHER, SELFPAY ==
--- NOTE | ~2025-08-15 | MM_ITS ---
EXAMINATION: DXA BONE DENSITY AXIAL HISTORY: Z78.0 - Asymptomatic menopausal state TECHNIQUE: [employer] Dual energy absorptiometry (DEXA) of the lumbar spine, total left hip, and femoral neck was performed. COMPARISON: Comparison is made with the prior examination dated July 2023 and June 2013. FINDINGS: The bone mineral density of the lumbar spine is 1.3-4 g/cm2, corresponding to a T-score of 1.2, and a Z-score of 1.8. This is indicative of normal bone mineral density. This represents a BMD change of -1.6% compared to the prior exam. This is not statistically significant. The bone mineral density of the left total hip is 0.988 g/cm2, corresponding to a T-score of -0.2, and a Z-score of 0.3. This is indicative of normal bone mineral density. This represents a BMD change of -3.6% compared to the prior exam. This is not statistically significant. This represents a BMD change of -8.3% compared to baseline. The bone mineral density of the left femoral neck is 0.875 g/cm2, corresponding to a T-score of -1.2, and a Z-score of 0.4. This is indicative of osteopenia. This represents a BMD change of 0.5% compared to the prior exam. This is not statistically significant. FRACTURE RISK: The FRAX index suggests a ten year probability of major osteoporotic fracture of 7.7%, and of hip fracture 1.0%. MM/XR DEXA axial skeleton IMPRESSION: Based on bone mineral density, and according to World Health Organization (WHO) criteria, the diagnosis is consistent with osteopenia based on lowest T score of -1.2 in the left femoral neck. No appreciable change compared to most recent exam July 2023. Treatment Recommendations: NOF guidelines recommend consideration for treatment in postmenopausal women and men age 50 and older presenting with the following: -A hip or vertebral (clinical or morphometric) fracture. -T-score less than or equal to -2.5 at the femoral neck or spine after appropriate evaluation to exclude secondary causes. -Low bone mass at the hip or spine and a 10-year fracture probability by FRAX of greater than or equal to 3% for hip fracture or greater than or equal to 20% for major osteoporotic fracture based on the [place] adapted WHO algorithm. Other Recommendations: All treatment decisions require clinical judgment and consideration of individual patient factors, including patient preferences, comorbidities, previous drug use, risk factors not captured in the FRAX model (e.g. frailty, falls, vitamin D deficiency, increased bone turnover, interval significant decline in bone density) and possible under or overestimation of fracture risk by FRAX. Additional medical evaluation for secondary cause of low bone mineral density may be appropriate. FUTURE SCAN RECOMMENDATION: People with diagnosed cases of osteoporosis or at high risk for fracture should have regular bone mineral density tests. For patients eligible for Medicare, routine testing is allowed once every 2 years. The testing frequency can be increased to one year for patients who have rapidly progressing disease, those who are receiving or discontinuing medical therapy to restore bone mass, or have additional Statistically, 68% of repeat scans fall within 1 SD (+/- 0.010 g/cm2 for AP spine L1-L4) and 1 SD (+/- 0.012 g/cm2 for femur total) FRAX is a trademark of the [employer]'s [facility] [employer], a World Health Organization (WHO) Collaborating Center. Electronically signed by: Jaelyn Hunter MD 08/15/2025 11:37 AM [facility]
== END 2025-08-15 10:26 | disposition home or self-care (01) ==
LOC: HO.MAMMO 10:25
PROVIDERS: PCP Internal Medicine; Visit Provider Internal Medicine
DX: Z12.31 Encounter for screening mammogram for malignant neoplasm of breast (principal); Z13.820 Encounter for screening for osteoporosis; Z78.0 Asymptomatic menopausal state
CPT/HCPCS: 77063; 77067; 77080

== ENCOUNTER → 2025-08-15 10:45 | Outpatient (BNV) | payer OTHER, SELFPAY | PROVIDERS: PCP Internal Medicine; Visit Provider Radiology Diagnostic Radiology | DX: E28.39 Other primary ovarian failure (principal) | CPT/HCPCS: 77080 ==

== ENCOUNTER 2025-08-24 13:59 | Outpatient (AMB) | payer OTHER, SELFPAY ==
[2025-08-24 14:15] VITALS: BP 148/90; PULSE 80; TEMP 36.2; O2SAT 97; BMI 33.2
--- NOTE | 2025-08-24 14:15 | A.OFFPC_ITS ---
Vital Signs 08/24/25 14:15 Height 5 ft 7 in Weight 212 lb BMI 33.2 BP 148/90 H Blood Pressure Location Rt brachial Position Sitting Pulse 80 Pulse Source Pulse Oximeter Temp 97.1 F Temp Source Temporal Artery Scan Pulse Oximetry (%) 97 Oxygen Delivery Method Room Air Intake Visit Reasons: pain on shoulder Allergies azithromycin (AZITHROMYCIN) Allergy (Severe, Verified 08/24/25 14:19) RASH, anaphylaxis lisinopril Allergy (Unknown, Verified 08/24/25 14:19) Cough Medication List - Last Reconciled 08/24/25 by Ana Rivers MD albuterol sulfate 90 mcg/actuation (Ventolin HFA) 2 puffs inhalation Q4-6H PRN amlodipine 5 mg PO DAILY 90 days atorvastatin 10 mg PO BEDTIME 90 days benzonatate 200 mg PO TID PRN cyclobenzaprine 5 mg PO TID PRN 30 days duloxetine 60 mg PO DAILY 90 days nicotine 1 patch transdermal DAILY 28 days topiramate 100 mg (2 x 50 mg) PO BEDTIME 90 days Tobacco use date assessed: 08/24/25 Fall risk assessment: No Falls in past year Last assessed Fall Risk: 08/24/25 Dental Screening Dental Screen Date: 08/24/25 Did you have a dental visit in the last 12 months?: Yes Did you have a dental problem in the last 6 months where you did not have access to dental care?: No Was dental information given to patient?: Patient has dentist HPI HPI Comments History of Present Illness Details The patient is a 65 year old individual presenting with left shoulder pain that started approximately three weeks to one month ago. The pain is described as random, sharp, and shooting, primarily located in the shoulder and bicep area, with occasional radiation down the arm. It is triggered by movements such as lifting the arm, reaching, or moving it downwards, and sometimes causes difficulty raising the arm fully. The patient denies any specific injury, trauma, or fall preceding the onset of pain. The patient reports using a heating pad and Bioflex gel, which provide some relief. Her work involves heavy lifting at times, but does not engage in other vigorous exercises. Past medical history is significant for bilateral extra cervical ribs, and the patient has previously performed exercises for related pain. There is no history of surgeries on the arm. Medications reviewed include topiramate, duloxetine, atorvastatin, amlodipine, and an albuterol inhaler as needed. The patient takes cyclobenzaprine 5 mg at night for general muscle pain. [facility] Medical History Upper respiratory tract infection Surgical History Skin cancer Family History Father Astrocytoma Mother Astrocytoma Sister Hypothyroid Family/Other FH: mental illness Brother Suicide Other Mental health disorder Social History Housing: Apartment Alcohol intake: current Alcohol intake frequency: holidays/special occasions only Alcohol type: beer and hard liquor Patient Tobacco Use Status: Current everyday Tobacco user Tobacco use type: Cigarette Cigarette Packs Per Day: 0.25 Cigarettes Per Day: 3 e-Cigarette/Vaping Use: Never Used Second Hand Smoke Exposure: Yes service: No Current occupational status: employed Current occupational exposures/hazards: No Cognitive needs: No Hearing needs: No Vision needs: Yes (Glasses) Questionnaire PHQ-9 Over the last 2 weeks, how often have you been bothered by any of the following problems? 1. Little interest or pleasure in doing things: not at all 2. Feeling down, depressed, or hopeless: not at all 3. Trouble falling or staying asleep, or sleeping too much: not at all 4. Feeling tired or having little energy: not at all 5. Poor appetite or overeating: not at all 6. Feeling bad about yourself - or that you are a failure or have let yourself or your family down: not at all 7. Trouble concentrating on things, such as reading the newspaper or watching television: not at all 8. Moving or speaking so slowly that other people could have noticed. Or the opposite - being so fidgety or restless that you have been moving around a lot more than usual: not at all 9. Thoughts that you would be better off or of hurting yourself in some way: not at all Total score: 0 Source: Developed by Drs. Cezar Sanz, Vikki Nur, Hao Ibarra and colleagues, with an educational antonio from [employer]. Thrive Questionnaire Date Thrive assessed: 11/29/24 I am a: Patient What is your living situation today?: I have a steady place to live Within the past 12 months, did the food you bought not last and you didn't have the money to get more?: Never true Within the past 12 months, did you worry whether your food would run out before you got money to buy more?: Never true Do you have trouble paying for medicines?: No Do you have trouble getting transportation to medical appointments?: No Do you have trouble paying your heating and electricity bill?: No Do you have trouble taking care of your child, family member or friend?: No Do you have trouble with day-to-day activities such as bathing, preparing meals, shopping, managing finances, etc.?: No Are you currently unemployed and looking for a job?: No Are you interested in more education?: No Please select the resources that you would like help with: None Currently or been in a relationship where the following occur: No concerns reported THRIVE Score: 0 AUDIT C Alcohol Use Questionnaire (AUDIT-C) 1. How often do you have a drink containing alcohol?: Monthly or less 2. How many drinks containing alcohol do you have on a typical day when you are drinking?: 1 or 2 3. How often do you have six or more drinks on one occasion?: Never Total Score: 1 HOLLEY-7 AMB Questionnaire HOLLEY-7 Date HOLLEY - 7 assessed: 11/29/24 Feeling nervous, anxious, or on edge: 0 = Not at all Not being able to stop or control worryin = Not at all Worrying too much about different things: 0 = Not at all Trouble relaxin = Not at all Being so restless that it is hard to sit still: 0 = Not at all Becoming easily annoyed or irritable: 0 = Not at all Feeling afraid as if something awful might happen: 0 = Not at all Total HOLLEY-7 score (0-4 normal; 5-9 mild; 10-14 moderate; 15-21 severe): 0 Source: Developed by Drs. Cezar Sanz, Vikki Nur, Hao Ibarra and colleagues, with an educational antonio from [employer]. Physical exam (Primary Care) Vital Signs: Last Vital Signs Temp 97.1 F 08/24/25 14:15 Pulse 80 08/24/25 14:15 BP 148/90 H 08/24/25 14:15 Pulse Ox 97 08/24/25 14:15 Oxygen Delivery Method Room Air 08/24/25 14:15 General: Well-appearing, alert, oriented ?3, in no acute distress. Cardiovascular: RRR, S1-S2 appreciated, no murmurs, rubs or gallops. Respiratory: Lungs clear to auscultation bilaterally, no wheezes, rales or rhonchi. Abdomen: Soft, nontender, nondistended. Normoactive bowel sounds. Shoulder: Range of motion, sensation and strength intact in bilateral shoulders. Positive empty can test. BMI result Body Mass Index 33.2 Tobacco/Smoking Status: Tobacco use Status Tobacco use date assessed 08/24/25 08/24/25 14:20 Patient Tobacco Use Status Current everyday Tobacco 08/24/25 14:20 Tobacco use type Cigarette 08/24/25 14:20 e-Cigarette/Vaping Use Never Used 08/24/25 14:20 PHQ-9: PHQ-9 Score PHQ-9: Total score 0 08/24/25 14:20 Thrive Assessment: Date of Thrive Assessment Date Thrive assessed 11/29/24 08/24/25 14:20 Currently or been in a relationship where the following occur: No concerns reported Coding Level of Care Code Est Pt Level 3 (89197) Diagnoses Left shoulder pain, unspecified chronicity M25.512 Chronicity: unspecified Assessment & Plan Assessment & Plan (1) Left shoulder pain: Code(s): M25.512 - Pain in left shoulder Qualifiers: Chronicity: unspecified Qualified Code(s): M25.512 - Pain in left shoulder Plan: Patient is presenting with a 3 to four-week history of left shoulder pain the setting of occupational history of heavy lifting, with ddx including osteoarthritis, tendinopathy, rotator cuff impingement. Obtain x-ray of the left shoulder to further evaluate. Start naproxen 500 mg twice a day for 7 days then on as-needed basis. Patient counseled on taking medication with food and water and avoiding other NSAIDs. Referral for physical therapy was discussed. However, the patient prefers to defer at this time due to scheduling conflicts. She will attempt home exercises that she previously learned. Orders: Orders XR shoulder LT min 2V Today M25.512 - Pain in left shoulder Medications: New naproxen 500 mg PO BID 30 tabs 0RF pain
== END 2025-08-24 14:47 | disposition home or self-care (01) ==
LOC: HO.HMCH 14:00
PROVIDERS: PCP Internal Medicine; Visit Provider Student in an Organized Health Care Education/Training Program
DX: M25.512 Pain in left shoulder (principal)

== ENCOUNTER 2025-08-24 13:59 | Outpatient (REF) | payer OTHER, SELFPAY ==
--- NOTE | ~2025-08-24 | XR_ITS ---
EXAMINATION: XR SHOULDER, LEFT CLINICAL INFORMATION: M25.512 - Pain in left shoulder COMPARISON: None available. TECHNIQUE: AP external rotation, Grashey, scapular Y, and axillary views of the left shoulder. FINDINGS: The AC joint is intact and unremarkable. Minute marginal osteophyte is present along the humeral head. Good humeral joint spaces preserved. There is no abnormal soft tissue calcification. There is no dislocation. Focal chronic calcifications in the left lung apex likely represents a small granuloma or other benign calcification. XR/XR shoulder LT min 2V IMPRESSION: Subtle degenerative change of the humeral head. Electronically signed by: Miguel Ángel Rowley MD 08/24/2025 03:37 PM EST
== END 2025-08-24 14:00 | disposition home or self-care (01) ==
LOC: HO.XRAY 13:59
PROVIDERS: PCP Internal Medicine; Visit Provider Student in an Organized Health Care Education/Training Program
DX: M25.512 Pain in left shoulder (principal)
CPT/HCPCS: 73030; 96127

== ENCOUNTER → 2025-08-24 15:04 | Outpatient (BNV) | payer OTHER, SELFPAY | PROVIDERS: PCP Internal Medicine; Visit Provider Radiology Diagnostic Radiology | DX: M25.512 Pain in left shoulder (principal) | CPT/HCPCS: 73030 ==